=== PATIENT | female | born 2000 | race Caucasian/White ===

== ENCOUNTER 2020-11-21 13:28 | Outpatient (CLI) | payer BC, OTHER, SELFPAY ==
--- NOTE | ~2020-11-21 | US_ITS ---
EXAMINATION: US abdomen limited DATE: 11/21/2020 13:55 INDICATION: Abdominal colic. TECHNIQUE: Multiple grayscale and Doppler ultrasound images of the abdomen were obtained. COMPARISON: None FINDINGS: The pancreas is obscured by bowel gas. The liver is normal without focal lesion. No liver s urface nodularity. There is normal flow in main portal vein. The gallbladder is normal in. No gallsto al or gallbladder wall thickening. There was no sonographic Horowitz sign. The common duct is normal a nd measures 4 mm. IMPRESSION: 1. Normal right upper quadrant ultrasound. Reviewed, dictated and finalized at location B.
== END 2020-11-21 13:29 | disposition home or self-care (01) ==
LOC: CHSIMG 13:33
DX: R10.84 Generalized abdominal pain (principal)
CPT/HCPCS: 76705